=== PATIENT | female | born 1965 | race American Indian/Alaskan Native ===

== ENCOUNTER 2017-06-19 09:56 | Day surgery (SDC) | payer OTHER ==
[2017-06-19] MEDS ORDERED: Propofol 10 mg/ml Inj (20 ML) ONE (13:03)
[2017-06-19 13:41] VITALS: TEMP 97.7; O2SAT 100
[2017-06-19 14:21] VITALS: BP 146/76; PULSE 77; RESP 16
== END 2017-06-19 14:35 | disposition home or self-care (01) ==
LOC: C.ENDO 09:56
PROVIDERS: ATTEND Internal Medicine Gastroenterology
DX: Z12.11 Encounter for screening for malignant neoplasm of colon (principal); K57.30 Diverticulosis of large intestine without perforation or abscess without bleeding; K64.0 First degree hemorrhoids
CPT/HCPCS: 45378; 84703; J2704